=== PATIENT | male | born 1965 | race Hispanic/Latino ===

== ENCOUNTER 2021-12-09 23:15 | Emergency (ER) | payer SELFPAY ==
[2021-12-09] MEDS ORDERED: Collagenase 250 UNITS/GM Ointment 30 GM TUBE TOP SCH (23:45)
== END 2021-12-10 01:34 | disposition home or self-care (01) ==
LOC: ERS 23:15
DX: Z48.01 Encounter for change or removal of surgical wound dressing (principal); I10 Essential (primary) hypertension; E11.9 Type 2 diabetes mellitus without complications
CPT/HCPCS: 99282